=== PATIENT | female | born 1940 | race Caucasian/White ===

== ENCOUNTER → 2016-09-13 | Outpatient (CLI) | payer MEDICARE, OTHER ==
[~2016-09-13] MED LIST: ACETAMINOPHEN650 M4 PO; AMLODIPINE BESYL5 MG PO; ASPIRINEC PO; AVALIDE 150-12.1 TAB PO; B-121000 MC1 PO; BACLOFEN10 MG PO; BACTRIM SS PO; BONIVA150 MG PO; CALCIUM + D SO1 EACH PO; CRESTOR PO; CRESTOR40 MG PO; CYANOCOBALAMI100 MCG PO; DICLOFENAC PO; ECOTRIN325 MG PO; EVISTA60 M1 PO; EVISTA60 MG PO; HYDROCODON-ACE1 EAC1 PO; HYDROCODON-ACE1 EAC5 PO; IMDUR PO; IMDUR-ER60 M2 PO; LEVAQUIN PO; LISINOPRIL20 MG PO; LOPRESSOR PO; LOPRESSOR100 MG PO; LORTAB 10/500 T1 TAB PO; MIRALAX17 GM PO; MULTI VITAMIN1 EACH PO; MULTIVITAMINS1 EAC3 PO; NORVASC PO; OS-CAL 500 + D500 MG PO; PATIENT'S PHARMACY; PLAVIX PO; POLYOX WSR-3011 GM MC; TALADINE150 MG PO; TOPROL XL 50 MG50 M1 PO; TOPROL XL 50 MG50 MG PO; VOLTAREN5 ML OP; VOLTAREN75 MG PO; XARELTO20 MG PO; ZANTAC150 M1 PO; ZESTORETIC 10/11 TAB PO; ZOCOR PO; ZOFRAN PO; [UNRECOGNIZED DRUG - OTHER]
--- NOTE | ~2016-09-13 | US82 ---
[facility] A Service of [facility] & [facility] RADIOLOGY TEXT RESULTS PATIENT: YOLANDA JAUREGUI LOCATION: CNIV : 41 UNIT #: [id number] AGE: [address]: Paola Miller MD SEX: F ORDER DR: [id number] [facility] [address] [place], [place] [address] [id number] O MR#: [id number] Acc #: [id number] NAME: YOLANDA JAUREGUI : 1940 SEX: F STUDY DATE/TIME: 09/13/2016 13:27 UNIT: CNIV ROOM: STUDY DESCRIPTION: US LE Art/Art Grafts Comp Phillip Attending Physician: Paola Miller M.D. Referring Physician: Paola Miller M.D. Ordering Physician: Paola Miller M.D. Primary Care Physician: Vipul Cisneros M.D. MEDICAL IMAGING REPORT This report is preliminary unless electronic signature is present EXAM Bilateral arterial duplex HISTORY Iliac stents placed March 2016. FINDINGS The right external iliac artery 193 cm/sec, with triphasic flow. The right common femoral artery has triphasic flow with a velocity of 152 cm/sec. The right superficial femoral artery has triphasic flow, 160 cm/sec, profunda triphasic flow 168 cm/sec. The Mid-superficial femoral artery 93 cm/sec, triphasic flow, and distal superficial femoral artery has triphasic flow, and a velocity of 146 cm/sec. the popliteal artery triphasic flow, 69 cm/sec. The tibioperoneal trunk 97 cm/sec, triphasic flow, and distal posterior tibial artery 39 cm/sec, triphasic flow. The left external iliac artery has triphasic flow with a velocity of 178 cm/sec. The left common femoral artery has triphasic flow with a velocity of 146 cm/sec. The left superficial femoral artery proximally shows triphasic flow, 160 cm/sec, profunda 93 cm/sec. The mid-SFA velocit is 108 cm/sec, triphasic flow, distal SFA 180 cm/sec, triphasic flow. The left popliteal artery velocity is 80 cm/sec, triphasic flow, tibioperoneal trunk 83 cm/sec, triphasic flow, distal patient artery 59 cm/sec, biphasic flow. IMPRESSION 1. The right lower extremity has patent flow throughout with no evidence of significant stenosis or occlusion. 2. The left lower extremity has patent flow throughout, with no evidence of significant stenosis or occlusion. 3. Previously placed iliac stents, were not seen in the external iliac arteries, and were not examined on this study. [facility] A Service of [facility] RADIOLOGY TEXT RESULTS PATIENT: YOLANDA JAUREGUI LOCATION: CNIV : 41 UNIT #: [id number] AGE: [address]: Paola Miller MD SEX: F ORDER DR: Dictated by... Antonio Corcoran M.D. THIS IS AN ELECTRONICALLY VERIFIED REPORT Antonio Corcoran M.D. at 09/14/2016 9:18 AM MALLORY/shanae TD: 09/13/2016 19:35 JOB #: [id number] MEDICAL IMAGING REPORT Page 1 of 1 COPY
--- NOTE | ~2016-09-13 | US136 ---
[facility] A Service of [facility] RADIOLOGY TEXT RESULTS PATIENT: YOLANDA JAUREGUI LOCATION: CNIV : 41 UNIT #: [id number] AGE: [address]: Paola Miller MD SEX: F ORDER DR: [id number] [facility] [address] [place], [place] [address] [id number] O MR#: [id number] Acc #: [id number] NAME: YOLANDA JAUREGUI : 1940 SEX: F STUDY DATE/TIME: 09/13/2016 12:59 UNIT: CNIV ROOM: STUDY DESCRIPTION: US U/L Ext Art Study [facility] Bil Attending Physician: Paola Miller M.D. Referring Physician: Paola Miller M.D. Ordering Physician: Paola Miller M.D. Primary Care Physician: Vipul Cisneros M.D. MEDICAL IMAGING REPORT This report is preliminary unless electronic signature is present DATE OF EXAMINATION 09/13/2016 EXAMINATION Ankle-brachial indices. CLINICAL HISTORY Peripheral arterial disease. FINDINGS The right brachial artery pressure is 171, the right dorsalis pedis pressure is 165, with an ankle-brachial index of 0.96. The right posterior tibial pressure is 153, with an ankle-brachial index of 0.89. The right digital pressure is 101, with a toe index of 0.59. The left brachial artery pressure is 163, the left dorsalis pedis pressure is 185, with an ankle-brachial index of 1.08. The left posterior tibial pressure is 117, with an ankle-brachial index of 0.68. The left digital pressure is 118, with a toe index of 0.69. Left ankle waveforms have a sharp upstroke and a dicrotic notch, while the right ankle waveforms are mildly blunted in comparison. Digital waveforms are blunted bilaterally. Posterior tibial waveforms and dorsalis pedis waveforms of the right are triphasic. Left posterior tibial waveforms are monophasic where as the dorsalis pedis waveforms are triphasic. IMPRESSION 1. The right RADHA is 0.96, which is within normal values. 2. The left RADHA is 1.08, which is within normal values. [facility]. [facility] A Service of [facility] RADIOLOGY TEXT RESULTS PATIENT: YOLANDA JAUREGUI LOCATION: CNIV : 41 UNIT #: [id number] AGE: [address]: Paola Miller MD SEX: F ORDER DR: Dictated by... Antonio Corcoran M.D. THIS IS AN ELECTRONICALLY VERIFIED REPORT Antonio Corcoran M.D. at 09/14/2016 9:16 AM MALLORY/cedric TD: 09/13/2016 19:31 JOB #: [id number] MEDICAL IMAGING REPORT Page 1 of 1 COPY
== END | disposition home or self-care (01) ==
LOC: CNIV 12:35
DX: I73.9 Peripheral vascular disease, unspecified (principal)
CPT/HCPCS: 93922; 93925

== ENCOUNTER → 2016-09-24 | Outpatient (CLI) | payer MEDICARE, OTHER ==
--- NOTE | ~2016-09-24 | MY11 ---
[facility] A Service of [facility] RADIOLOGY TEXT RESULTS PATIENT: YOLANDA JAUREGUI LOCATION: [facility] : 41 UNIT #: [id number] AGE: [address]: Vipul Cisneros MD SEX: F ORDER DR: [id number] [facility] [address] [place], [place] [address] [id number] O MR#: [id number] Acc #: [id number] NAME: YOLANDA JAUREGUI : 1940 SEX: F STUDY DATE/TIME: 09/24/2016 11:01 UNIT: [facility] ROOM: STUDY DESCRIPTION: MY Mammogram Screening Dig Phillip Attending Physician: Vipul Cisneros M.D. Ordering Physician: Vipul Cisneros M.D. Primary Care Physician: Vipul Cisneros M.D. MEDICAL IMAGING REPORT This report is preliminary unless electronic signature is present EXAM Digital screening mammogram, 09/24/2016 HISTORY 76-year-old woman interim weight loss. Patient on hormone replacement. Annual screening. COMPARISON Mammograms date to 08/01/2007 with most recent screening comparison 09/23/2015. FINDINGS Digital imaging of each breast was completed utilizing screening protocol. Review includes FDA-approved CAD device. The breast parenchyma is moderately dense with residual parenchymal opacities bilaterally. There is mild subareolar duct prominence in each breast. There is no interval occurring mass. I see no suspicious microcalcifications and no suspicious architectural deformity. IMPRESSION Stable benign mammogram. Annual screening recommended. Patients over the age of 40 are entered into a reminder system with target due date for the next mammogram. A result letter will also be sent to the patient. BIRADS: 2 Benign Finding Dictated by... Michael Dumont M.D. [facility] A Service [facility] RADIOLOGY TEXT RESULTS PATIENT: YOLANDA JAUREGUI LOCATION: [facility] : 41 UNIT #: [id number] AGE: [address]: Vipul Cisneros MD SEX: F ORDER DR: THIS IS AN ELECTRONICALLY VERIFIED REPORT Michael Dumont M.D. at 09/26/2016 8:10 AM Jodie TD: 09/24/2016 13:03 JOB #: [id number] MEDICAL IMAGING REPORT Page 1 of 1 COPY
== END | disposition home or self-care (01) ==
LOC: CWCC 10:40
DX: Z12.31 Encounter for screening mammogram for malignant neoplasm of breast (principal); Z79.890 Hormone replacement therapy
CPT/HCPCS: G0202

== ENCOUNTER 2016-11-01 10:40 | Inpatient (IN) | payer MEDICARE, OTHER ==
--- NOTE | ~2016-11-01 | EKG ---
PATIENT: YOLANDA JAUREGUI UNIT #: [id number] Ventricular Rate: 62 BPM Atrial Rate: 64 BPM QRS Duration: 88 ms Q-T Interval: 436 ms QTC Calculation(Bezet): 442 ms Calculated R [place]: 10 degrees Calculated T [place]: 64 degrees Diagnosis Line: Atrial fibrillation Diagnosis Line: Minimal voltage criteria for LVH, may be normal Diagnosis Line: variant Diagnosis Line: Abnormal ECG Diagnosis Line: When compared with ECG of 21-MAR-2016 15:05, Diagnosis Line: No significant change was found Diagnosis Line: Confirmed by BISI MASSEY MD ([id number]) on 11/01/2016 Diagnosis Line: 8:42:04 PM INTERPRETING MD: BRYSON WILSON
--- NOTE | ~2016-11-01 | MR18 ---
[facility] A Service of [facility] RADIOLOGY TEXT RESULTS PATIENT: YOLANDA JAUREGUI LOCATION: A 311- : 41 UNIT #: [id number] AGE: [address]: Angelica Nicole MD SEX: F ORDER DR: [id number] [facility] [address] [place], [place] [address] [id number] I MR#: [id number] Acc #: [id number] NAME: YOLANDA JAUREGUI. : 1940 SEX: F STUDY DATE/TIME: 11/01/2016 17:17 UNIT: A U ROOM: [facility] STUDY DESCRIPTION: MR Brain Wo Contrast Attending Physician: Dalton Munguia M.D. Ordering Physician: Physician Non-Staff Primary Care Physician: Vipul Cisneros M.D. MRI CENTER REPORT This report is preliminary unless electronic signature is present. EXAM MRI of the brain without contrast dated 11/01/2016. COMPARISON MRI brain without contrast dated 04/02/2016. HISTORY Patient was fine yesterday, but this morning patient could not talk to her daughter. Patient did not recognize her. She does only nonverbal communication. History of prior CVA. FINDINGS Multisequence, multiplanar imaging of the brain was obtained without contrast. No acute stroke, space-occupying intracranial mass, mass effect, midline shift or hydrocephalus. Previously noted right middle cerebral artery distribution stroke in the right frontal lobe extending to the right insular cortex has evolved in the interval to a more chronic state. Focal hypointense gradient signal is seen in the right frontal subcortical white matter (series 6, image 21). It is relatively new since last year and it is likely related to laminar necrosis given the precontrast increased T1 signal in this region. There are multiple hyperintense T2-signal other lesions also seen in the periventricular and subcortical white matter, bilateral basal ganglia. These are relatively stable since last year. Thick slices through the sella with the pituitary gland, pineal region, upper cervical spine and bilateral cerebellopontine angles with the inner ear structures do not demonstrate any significant mass lesions. Degenerative mild changes are in the cervical spine. Motion artifact is noted in the sagittal T1 sequence, despite repeats. S-shaped nasal septal deviation is noted with well-aerated paranasal sinuses. Orbits with the ocular structures are grossly unremarkable. [facility] A Service of [facility] RADIOLOGY TEXT RESULTS PATIENT: YOLANDA JAUREGUI LOCATION: [facility] 311-01 : 41 UNIT #: [id number] AGE: [address]: Angelica Nicole MD SEX: F ORDER DR: 1. No acute intracranial abnormality. 2. Previously known right anterior division middle cerebral artery distribution stroke in 2016 has evolved to a more chronic state, with laminar necrosis. 3. Multiple hyperintense T2 other signal lesions noted in the brain are again seen and they are most suggestive of chronic microvascular moderate ischemic change, based on age and statistics. Dictated by... Annalise Gupta M.D. THIS IS AN ELECTRONICALLY VERIFIED REPORT Annalise Gupta M.D. at 11/02/2016 11:46 AM CPR/psc TD: 11/02/2016 03:53 JOB #: [id number] MRI CENTER REPORT Page 1 of 1 COPY
--- NOTE | ~2016-11-01 | CT71 ---
[facility] A Service of [facility] RADIOLOGY TEXT RESULTS PATIENT: YOLANDA JAUREGUI LOCATION: [facility] 311-01 : 41 UNIT #: [id number] AGE: [address]: Angelica Nicole MD SEX: F ORDER DR: [id number] [facility] [address] [place], [place] [address] [id number] E MR#: [id number] Acc #: [id number] NAME: YOLANDA JAUREGUI : 1940 SEX: F STUDY DATE/TIME: 11/01/2016 13:41 UNIT: BECCA ROOM: STUDY DESCRIPTION: CT Head Wo Contrast Attending Physician: Blaine Zhao M.D. Ordering Physician: [facility] Primary Care Physician: Vipul Cisneros M.D. MEDICAL IMAGING REPORT This report is preliminary unless electronic signature is present EXAM Noncontrast CT head. 11/01/2016 HISTORY Confusion, generalized malaise, slow to respond. Symptoms have been present for [id number]-whmvm days. Additional history of hypertension, previous myocardial infarction, congestive heart failure, skin cancer. COMPARISON Noncontrast CT head 04/27/2016. TECHNIQUE This CT exam was performed with one or more of the following radiation dose reduction techniques: automatic exposure control, adjustment of mA and/or kV according to patient size, and iterative reconstruction. FINDINGS Appearance of probable subacute infarct within the right frontal lobe, which appears immediately contiguous with an area of encephalomalacia or old vascular insult documented on the 04/27/2016 examination. No hemorrhagic transformation, mass effect or midline shift. Scattered areas of more moderate chronic microvascular disease changes in the deep white matter with mild generalized atrophy. Ventricular configuration normal. No calvarial abnormality. Paranasal sinuses, mastoid air cells are clear. Bilateral intracranial coronary artery calcifications are present. IMPRESSION 1. Suspected subacute infarct within the right frontal lobe, which lies contiguous to an area of preexisting encephalomalacia or old infarct within the right frontal lobe. 2. No hemorrhagic transformation. [facility] A Service [facility] RADIOLOGY TEXT RESULTS PATIENT: YOLANDA JAUREGUI LOCATION: [facility] 311-01 : 41 UNIT #: [id number] AGE: [address]: Angelica Nicole MD SEX: F ORDER DR: Dictated by... Mellisa Lopez M.D. THIS IS AN ELECTRONICALLY VERIFIED REPORT Mellisa Lopez M.D. at 11/02/2016 9:36 PM RANJANA/lilly TD: 11/01/2016 18:18 JOB #: [id number] MEDICAL IMAGING REPORT Page 1 of 1 COPY
--- NOTE | ~2016-11-01 | CR72 ---
[facility] A Service of [facility] RADIOLOGY TEXT RESULTS PATIENT: YOLANDA JAUREGUI LOCATION: [facility] 311-01 : 41 UNIT #: [id number] AGE: [address]: Angelica Nicole MD SEX: F ORDER DR: [id number] [facility] [address] [place], [place] [address] [id number] E MR#: [id number] Acc #: [id number] NAME: YOLANDA JAUREGUI : 1940 SEX: F STUDY DATE/TIME: 11/01/2016 11:53 UNIT: BECCA ROOM: STUDY DESCRIPTION: CR Chest Single View Portable Attending Physician: Blaine Zhao M.D. Ordering Physician: Ed Ellis Haas M.D. Primary Care Physician: Vipul Cisneros M.D. MEDICAL IMAGING REPORT This report is preliminary unless electronic signature is present EXAM Portable chest HISTORY Shortness of breath with weakness onset today. TECHNIQUE Single AP view chest was obtained and compared with 04/06/2016. FINDINGS Heart size is upper limits of normal and the aorta is tortuous. Both lungs are clear with normal vascular markings. No pleural fluid is seen. IMPRESSION Borderline cardiomegaly with a tortuous aorta. No change from the previous exam. Dictated by... Esequiel Lieberman M.D. THIS IS AN ELECTRONICALLY VERIFIED REPORT Esequiel Lieberman M.D. at 11/02/2016 7:14 AM RLF/vernon TD: 11/01/2016 15:50 JOB #: [id number] MEDICAL IMAGING REPORT Page 1 of 1 COPY
--- NOTE | ~2016-11-01 | EKG ---
PATIENT: YOLANDA JAUREGUI UNIT #: [id number] Ventricular Rate: 66 BPM Atrial Rate: 65 BPM QRS Duration: 88 ms Q-T Interval: 424 ms QTC Calculation(Bezet): 444 ms Calculated R [place]: 35 degrees Calculated T [place]: 63 degrees Diagnosis Line: Atrial fibrillation Diagnosis Line: Abnormal ECG Diagnosis Line: When compared with ECG of 01-NOV-2016 11:43, Diagnosis Line: No significant change was found Diagnosis Line: Confirmed by BISI MASSEY MD ([id number]) on 11/07/2016 Diagnosis Line: 2:47:28 PM INTERPRETING MD: BRYSON WILSON
--- NOTE | ~2016-11-01 | DS ---
Unit #: [id number] #: [id number] Patient: YOLANDA JAUREGUI [id number] [address] [address] [id number] I MR#: [id number] NAME: YOLANDA JAUREGUI. ROOM: 311 Age: 76 Sex: F Admission Date: 11/01/2016 : 1940 Discharge Date: 11/03/2016 Attending Physician: Pam Alvarado M.D. Primary Care Physician: Vipul Cisneros M.D. DISCHARGE SUMMARY REASON FOR ADMISSION Altered mental status. HISTORY OF PRESENT ILLNESS/HOSPITAL COURSE The patient is a 76-year-old female with underlying history of atrial fibrillation, baseline dementia who presented after daughter found the patient confused, unable to follow appropriate commands. She became concerned for possible underlying UTI and/or possible underlying CVA. Thus, patient was brought to the hospital for further evaluation. On evaluating in the emergency room, the patient underwent a CT head noncontrast which did show any acute process. There was a questionable probable subacute infarct within the right frontal lobe. This subsequently prompted a MRI without contrast to be done to ascertain aforementioned area. This did show no acute intracranial abnormality which was noted. There were multiple hyperintensive T2 signal lesions which were noted more of chronic nature. Initial urinalysis was positive. Final urine culture result did reveal Klebsiella with sensitivity to Bactrim as well as Rocephin. While here, she was placed on Rocephin. At time of discharge, the patient's creatinine was 0.6. Electrolytes were within normal range. Hemoglobin 12.1. Plans have been reviewed with patient's daughter. She has been cleared by physical and occupational therapy as well for safe transition home. At this point in time, patient will be discharged home under the supervision and care of patient's daughter. FINAL DISCHARGE DIAGNOSES 1. Acute metabolic encephalopathy, now improving. 2. Klebsiella urinary tract infection. 3. Possible subacute cerebrovascular accident on CT head; however, MRI negative. 4. Atrial fibrillation history on chronic anticoagulation. 5. Hyperlipidemia. 6. Generalized weakness. 7. Hypertension. FINAL DISCHARGE MEDICATIONS 1. Tylenol 650 mg p.o. q.6 p.r.n. 2. Xarelto 20 mg p.o. daily. 3. Crestor 40 mg p.o. daily. Unit #: [id number] #: [id number] Patient: YOLANDA JAUREGUI 4. Zantac 150 mg p.o. b.i.d. 5. Boniva 150 mg p.o. q. month. 6. Multivitamin daily. 7. Calcium 500 mg p.o. daily. 8. Baclofen 10 mg p.o. daily p.r.n. 9. Vitamin B12 at 1000 mcg p.o. daily. 10. Zestril 20 mg p.o. daily. 11. Bactrim single strength one tablet p.o. b.i.d. x5 days. DISCHARGE CONDITION Stable. DISCHARGE DISPOSITION Home. Dictated by... Alma Grant/kel TD: 11/06/2016 15:42 JOB #: [id number] DISCHARGE SUMMARY Page 1 of 1 X Pam Alvarado MD X DISCHARGE SUMMARY
--- NOTE | ~2016-11-01 | HP ---
Unit #: [id number] #: [id number] Patient: YOLANDA JAUREGUI [id number] [address] [address] [id number] E MR#: [id number] NAME: YOLANDA JAUREGUI ROOM: Age: 76 Sex: F Admission Date: 11/01/2016 : 1940 Attending Physician: Blaine Zhao M.D. Primary Care Physician: Vipul Cisneros M.D. HISTORY AND PHYSICAL CHIEF COMPLAINT Altered mental status. HISTORY OF PRESENT ILLNESS The patient is a 76-year-old female with a history of atrial fibrillation on Xarelto. There is also a history of coronary artery disease status post myocardial infarction, congestive heart failure and hypertension. The patient was brought to the emergency room by her daughter for altered mental status his morning. The patient's daughter stated the patient had been at her baseline yesterday evening and today the daughter tried to call her and the patient did not answer the phone so she went over to her house. The patient was found on the commode at home this a.m. confused, unable to follow commands and did not know her name or where she was. The patient's daughter then called EMS and had her transported here to the emergency room. The patient is unable to answer any questions at this point. She does open her eyes and does look at you, but is nonverbal at this point. The patient's daughter states that this is completely not her baseline. PAST MEDICAL HISTORY 1. Atrial fibrillation. 2. Coronary artery disease status post myocardial infarction. 3. Congestive heart failure. 4. Hypertension. 5. Hyperlipidemia. 6. History of CVA in 03/2016. PAST SURGICAL HISTORY 1. Bilateral total hip replacement. 2. Left total knee replacement in 03/2011. 3. History of left heart catheterization. 4. History of D and C. SOCIAL HISTORY The patient lives at home alone. No tobacco. No alcohol use reported. FAMILY HISTORY Noncontributory at this time. ALLERGIES Phenergan. HOME MEDICATIONS 1. Xarelto 20 mg q.p.m. Unit #: [id number] #: [id number] Patient: YOLANDA JAUREGUI 2. Hydrocodone 10/325 mg 1 tab t.i.d. p.r.n. pain. 3. Crestor 40 mg at nighttime. 4. Zantac 50 mg b.i.d. 5. Multivitamin 1 tablet daily. 6. MiraLAX 17 g daily. 7. Ibandronate 150 mg q. month. 8. Baclofen 10 mg daily p.r.n. REVIEW OF SYSTEMS Unable to obtain secondary to the patient's altered mental status. PHYSICAL EXAMINATION GENERAL: The patient appears to be a well-nourished, well-developed, elderly female who is in no acute distress. VITALS: Temperature 98.3, heart rate 74, blood pressure 156/72, respiratory rate 18, saturating 96% on room air. HEENT: Pupils are equal and reactive to light. Oropharynx is clear. Mucous membranes appear to be moist. Sclerae are anicteric. NECK: Without lymphadenopathy. LUNGS: Clear to auscultation bilaterally. HEART: Regular rate, but irregular rhythm. No rubs, gallops or murmurs appreciated. ABDOMEN: Positive bowel sounds. Soft, nontender and nondistended. EXTREMITIES: No clubbing or cyanosis. The patient does have trace pedal edema bilaterally. NEUROLOGIC: The patient does open her eyes, but does not follow commands and is not verbal. The remainder of the neurologic examination is unable to be performed as the patient is not able to cooperate. DIAGNOSTIC STUDIES LABORATORY: White blood cell count 10.8, hemoglobin 13, platelets 209. Basic panel noted for potassium 3.0, otherwise within normal limits. Urinalysis positive for leukocyte esterase, 4+ bacteria 100-200 white blood cells. ASSESSMENT/PLAN 1. Metabolic encephalopathy, acute, likely secondary to urinary tract infection, although there is a question of possible subacute CVA on noncontrast head CT done today and area of old stroke. 2. Urinary tract infection. Will send urine culture and treat with Rocephin 1 g IV q.24 h. for now. 3. Hypokalemia. Replacing with IV potassium here in the emergency room. Will also check a magnesium level. 4. Subacute CVA. Will obtain MRI of the brain. 5. Atrial fibrillation. Currently rate controlled. Will monitor and continue Xarelto. 6. Hyperlipidemia. Continue Crestor. CODE STATUS The patient is a full code. DISPOSITION Expected disposition in under 48 hours. Dictated by Dalton Munguia M.D. Unit #: [id number] #: [id number] Patient: YOLANDA JAUREGUI MRR/gz TD: 11/01/2016 16:07 JOB #: [id number] CC: Ever Larsen M.D. HISTORY AND PHYSICAL Page 1 of 1 X X HISTORY AND PHYSICAL
--- NOTE | ~2016-11-01 | CO ---
Unit #: [id number] #: [id number] Patient: YOLANDA JAUREGUI [id number] [address] [address] [id number] MR#: [id number] NAME: YOLANDA JAUREGUI. ROOM: 311 Age: 76 Sex: F Admission Date: 11/01/2016 : 1940 Attending Physician: Pam Alvarado M.D. Primary Care Physician: Vipul Cisneros M.D. Consultation Date: 11/03/2016 CONSULTATION REPORT REASON FOR CONSULTATION Pauses. HISTORY OF PRESENT ILLNESS The patient is a 76-year-old female, who follows with Dr. Bishop with [facility]. In 2007, patient had a cardiac cath which showed 90% stenosis in long segment of mid circumflex marginal branch, luminal irregularities in the LAD and the RCA. At that time, her EF was 55% with pbqh-gx-ahtuxoox AR and it was decided for her to be treated medially. She additionally has a past medical history of coronary artery disease, gvib-gz-krgchcif AR, hypertension, hyperlipidemia, chronic atrial fibrillation and flutter on Xarelto, chronic diastolic CHF, and a stroke in March of 2006. She is a nonsmoker. The patient presented to the emergency department with complaints of altered mental status. Ultimately, patient was found to Klebsiella pneumoniae urinary tract infection. Upon interview, patient is alert and oriented and pleasant. Cardiology was consulted for permanent atrial fibrillation and pause. Cardiology was consulted for concerns with sinus pauses. PAST MEDICAL HISTORY 1. Cardiac cath in 2007, 90% stenosis in long segment of mid circumflex marginal branch and luminal irregularities in the LAD and RCA. At that time, EF 55%. Ttef-io-wbycpbzc AR. She was treated medically. 2. Coronary artery disease. 3. Bgon-mf-bkaejzzo AR. 4. Hypertension. 5. Hyperlipidemia. 6. Chronic atrial fibrillation/flutter on Xarelto. 7. Chronic diastolic CHF. 8. CVA in 2005. 9. Nonsmoker. PAST SURGICAL HISTORY 1. Bilateral total hip replacement. 2. Left total knee replacement in 2010. 3. History of left heart cath. 4. History of D and C. ALLERGIES Phenergan. HOME MEDICATIONS Unit #: [id number] #: [id number] Patient: YOLANDA JAUREGUI 1. Hydrocodone/acetaminophen 10/325 mg one tab p.o. q.8 hours p.r.n. pain. 2. Xarelto 20 mg p.o. daily. 3. Crestor 40 mg p.o. at bedtime. 4. Ranitidine 150 mg p.o. b.i.d. 5. Boniva 150 mg p.o. monthly on the of every month. 6. Multivitamin one tab p.o. daily. 7. Calcium plus vitamin D one tab p.o. daily. 8. Vitamin B12 one tab p.o. daily. 9. MiraLax one pack p.o. daily. 10. Baclofen 10 mg p.o. daily p.r.n. muscle spasms. FAMILY HISTORY Noncontributory. SOCIAL HISTORY The patient denies tobacco, alcohol, or illicit drug abuse. REVIEW OF SYSTEMS A 10-point review of systems has been done and is considered otherwise negative unless indicated in the HPI. PHYSICAL EXAMINATION GENERAL: The patient is awake, alert in no acute distress. VITAL SIGNS: Temperature 97.4, heart rate 53, respirations 18, blood pressure 123/74, and she is oxygenating 99%. HEENT: Head is atraumatic, normocephalic. Pupils equal, round, and reactive to light. Extraocular movements are intact. No drainage from ears or nares. NECK: Supple. Trachea is midline. CHEST: Lungs are clear to auscultation bilaterally. No wheezes, rales, or rhonchi. CARDIOVASCULAR: Irregularly irregular. No murmurs, rubs, or gallops appreciated. ABDOMEN: Soft, nontender, nondistended. Bowel sounds are positive in all four quadrants. SKIN: Appears to be warm, dry, intact without any unusual rashes or lesions. EXTREMITIES: No clubbing, edema, or cyanosis. NEUROLOGIC: The patient is alert and oriented x3. She is pleasant, conversant. No focal deficits. DIAGNOSTIC STUDIES LABORATORY: White blood cells 11.5, hemoglobin 12.1, hematocrit 37.5, platelets 196,000. Sodium 142, potassium 3.6, chloride 107, CO2 of 28, BUN 13, creatinine 0.6, glucose 93. CARDIOVASCULAR: EKG shows atrial fibrillation. Telemetry strips show atrial fibrillation with a pause of 2 seconds. ASSESSMENT 1. Altered mental status, secondary to Klebsiella pneumoniae urinary tract infection. 2. Permanent atrial fibrillation with controlled rates on Xarelto. 3. Moderate aortic regurgitation. 4. Hypertension. 5. Hyperlipidemia. 6. Chronic diastolic congestive heart failure. Unit #: [id number] #: [id number] Patient: YOLANDA JAUREGUI 7. History of cerebrovascular accident in 2012. PLAN At this time, an EKG has been obtained and Dr. Reese has reviewed it. Dr. Reese has reviewed telemetry strips and noted that the pauses are no greater than 2.5 seconds. The patient is asymptomatic. The patient can follow with Dr. Bishop in two to four weeks. She is stable for discharge. I have discussed this with the hospitalist. Dictated by... Lola Ferrari A.P.R.N. for Alma Greco TD: 11/03/2016 15:59 JOB #: [id number] CONSULTATION REPORT Page 1 of 1 X Lola Ferrari APRN X CONSULTATION REPORT
[~2016-11-01 10:40] MED LIST changes: -ACETAMINOPHEN650 M4 PO; -B-121000 MC1 PO; -BACLOFEN10 MG PO; -BACTRIM SS PO; -CALCIUM + D SO1 EACH PO; -CRESTOR40 MG PO; -CYANOCOBALAMI100 MCG PO; -LISINOPRIL20 MG PO; -MULTI VITAMIN1 EACH PO; -MULTIVITAMINS1 EAC3 PO; -OS-CAL 500 + D500 MG PO; -PATIENT'S PHARMACY; -TALADINE150 MG PO; -XARELTO20 MG PO
[2016-11-01] MEDS ORDERED: PATIENT'S PHARMACY (11:20)
[2016-11-01] MEDS ORDERED: TALADINE150 MG PO (11:21)
[2016-11-01] MEDS ORDERED: HYDROCODON-ACE1 EAC5 PO (11:21)
[2016-11-01] MEDS ORDERED: XARELTO20 MG PO (11:21)
[2016-11-01] MEDS ORDERED: CRESTOR40 MG PO (11:21)
[2016-11-01] MEDS ORDERED: BONIVA150 MG PO (11:22)
[2016-11-01] MEDS ORDERED: CYANOCOBALAMI100 MCG PO (11:22)
[2016-11-01] MEDS ORDERED: CALCIUM + D SO1 EACH PO (11:22)
[2016-11-01] MEDS ORDERED: MIRALAX17 GM PO (11:22)
[2016-11-01] MEDS ORDERED: MULTIVITAMINS1 EAC3 PO (11:22)
[2016-11-01] MEDS ORDERED: BACLOFEN10 MG PO (11:23)
[2016-11-01 11:33] LABS: URINE SOURCE CATH
[2016-11-01 11:45] LABS: URINE APPEARANCE CLOUDY; URINE BILIRUBIN NEG (NEG); URINE BLOOD 3+ (NEG); URINE COLOR YELLOW; URINE GLUCOSE NEG (NEG); URINE KETONE NEG (NEG); URINE LEUKOCYTE ESTERASE 3+ (NEG); URINE NITRATE NEG (NEG); URINE PROTEIN 2+ (NEG)
[2016-11-01 11:47] LABS: CULTURE INDICATED? YES; URBCS1 AUWI 100-200 /[HPF] (0-2); URINE BACTERIA AUWI 4+ (NEGATIVE); URINE SQUAMOUS EPITHELIAL CELL NONE SEEN /[HPF]; UWBCS1 AUWI 100-200 (0-5)
[2016-11-01 13:40] LABS: BASOPHIL% 0.4 % (0-2.5); HEMATOCRIT 40.2 % (35.0-45.0); LYMPHOCYTE# 1.1 X10e3 (1.0-3.5); LYMPHOCYTE% 9.8 % (17.0-45.0); MEAN CELL VOLUME 89.1 FL (83-96); MEAN CORPUSCULAR HEMOGLOBIN 28.7 PG (28-34); MEAN CORPUSCULAR HGB CONC 32.3 g/dL (30-36); MEAN PLATELET VOLUME 8.4 FL (6.5-11.5); MONOCYTE# 0.8 X10e3 (0-1.0); MONOCYTE% 7.2 % (3.0-12.0); NEUTROPHIL# 8.9 X10e3 (1.5-7.1); NEUTROPHIL% 82.6 % (40-75); PLATELET COUNT 209 X10e3 (140-420); RED BLOOD COUNT 4.51 X10e (3.90-5.30); RED CELL DISTRIBUTION WIDTH 14.9 % (11.0-15.5); WHITE BLOOD COUNT 10.8 X10e3 (4.0-10.5)
[2016-11-01 13:44] LABS: DIFF IND NO
[2016-11-01 13:53] LABS: INR 1.2; PROTHROMBIN TIME (PATIENT) 13.3 SECONDS (10.0-11.7)
[2016-11-01 14:16] LABS: CALCIUM SERUM 9.2 mg/dL (8.4-10.2); CREATININE SERUM 0.6 mg/dL (0.6-1.4); GLOM FILT RATE Estimated 89.2 mL/min (>60)
[2016-11-02 08:54] LABS: BASOPHIL# 0.1 X10e3 (0-0.3); BASOPHIL% 0.6 % (0-2.5); EOSINOPHIL% 0.2 % (0.0-7.0); HEMOGLOBIN 12.7 gm/dL (12.0-16.0); LYMPHOCYTE# 1.7 X10e3 (1.0-3.5); LYMPHOCYTE% 16.4 % (17.0-45.0); MEAN CELL VOLUME 88.3 FL (83-96); MEAN CORPUSCULAR HEMOGLOBIN 28.9 PG (28-34); MEAN CORPUSCULAR HGB CONC 32.7 g/dL (30-36); MEAN PLATELET VOLUME 8.3 FL (6.5-11.5); MONOCYTE% 10.3 % (3.0-12.0); NEUTROPHIL# 7.3 X10e3 (1.5-7.1); NEUTROPHIL% 72.5 % (40-75); PLATELET COUNT 202 X10e3 (140-420); RED BLOOD COUNT 4.41 X10e (3.90-5.30); RED CELL DISTRIBUTION WIDTH 14.6 % (11.0-15.5); WHITE BLOOD COUNT 10.1 X10e3 (4.0-10.5)
[2016-11-02 09:10] LABS: DIFF IND NO
[2016-11-02 09:23] LABS: CALCIUM SERUM 8.8 mg/dL (8.4-10.2); CREATININE SERUM 0.5 mg/dL (0.6-1.4); GLOM FILT RATE Estimated 94.7 mL/min (>60); POTASSIUM 3.3 mmol/L (3.5-5.1)
[2016-11-03 07:28] LABS: HEMATOCRIT 37.5 % (35.0-45.0); HEMOGLOBIN 12.1 gm/dL (12.0-16.0); MEAN CELL VOLUME 88.3 FL (83-96); MEAN CORPUSCULAR HEMOGLOBIN 28.4 PG (28-34); MEAN CORPUSCULAR HGB CONC 32.2 g/dL (30-36); MEAN PLATELET VOLUME 8.6 FL (6.5-11.5); RED BLOOD COUNT 4.25 X10e (3.90-5.30); RED CELL DISTRIBUTION WIDTH 14.8 % (11.0-15.5); WHITE BLOOD COUNT 11.5 X10e3 (4.0-10.5)
[2016-11-03 07:59] LABS: BUN/CREATININE RATIO 21.66; CALCIUM SERUM 8.9 mg/dL (8.4-10.2); CREATININE SERUM 0.6 mg/dL (0.6-1.4); GLOM FILT RATE Estimated 89.2 mL/min (>60); MAGNESIUM 1.9 mg/dL (1.6-3.0); POTASSIUM 3.6 mmol/L (3.5-5.1)
[2016-11-03] MEDS ORDERED: ACETAMINOPHEN650 M4 PO (13:53)
[2016-11-03] MEDS ORDERED: LISINOPRIL20 MG PO (13:54)
[2016-11-03] MEDS ORDERED: MULTI VITAMIN1 EACH PO (13:54)
[2016-11-03] MEDS ORDERED: OS-CAL 500 + D500 MG PO (13:56)
[2016-11-03] MEDS ORDERED: B-121000 MC1 PO (13:58)
[2016-11-03] MEDS ORDERED: BACTRIM SS PO (14:02)
== END 2016-11-03 15:12 | disposition home health service (06) | DRG 689 ==
LOC: CED 10:40 → C3A PCU 15:30 → CED 15:30 → C3A PCU 20:00 → CED 11-02 10:23 → C3A PCU 11-02 10:23
PROVIDERS: Emergency Medicine; Internal Medicine; Nurse Practitioner
PROC: 05H433Z Insertion of Infusion Device into Left Innominate Vein, Percutaneous Approach (ICD-10-PCS; principal; 2016-11-01)
DX: N39.0 Urinary tract infection, site not specified (principal); G93.41 Metabolic encephalopathy; I50.32 Chronic diastolic (congestive) heart failure; I48.2 Chronic atrial fibrillation; B96.1 Klebsiella pneumoniae [K. pneumoniae] as the cause of diseases classified elsewhere; I25.10 Atherosclerotic heart disease of native coronary artery without angina pectoris; I10 Essential (primary) hypertension; E78.5 Hyperlipidemia, unspecified; Z79.01 Long term (current) use of anticoagulants; I35.1 Nonrheumatic aortic (valve) insufficiency; Z86.73 Personal history of transient ischemic attack (TIA), and cerebral infarction without residual deficits; Z96.643 Presence of artificial hip joint, bilateral; Z96.652 Presence of left artificial knee joint; Z88.8 Allergy status to other drugs, medicaments and biological substances; E87.6 Hypokalemia
CPT/HCPCS: 36415; 70450; 70551; 71010; 80048; 81003; 83735; 85025; 85027; 85610; 87086; 87088; 87186; 93005; 97116; 97161; 99285; G8978-GP; G8979-GP; G8980-GP; J0696